=== PATIENT | male | born 1950 | race American Indian/Alaskan Native ===

== ENCOUNTER 2017-02-12 12:01 | Emergency (ER) | payer MEDICARE ==
[2017-02-12 13:03] LABS: Anion Gap 19 mmol/L; Blood Urea Nitrogen 12 mg/dL (9-20); Carbon Dioxide 27 mmol/L (22-30); Chloride 98.3 mmol/L (98-107); Glucose 108 mg/dL (75-100); Potassium 4.2 mmol/L (3.6-5.0); Sodium 140 mmol/L (137-145)
[2017-02-12 13:07] LABS: Basophils % (Auto) 1.1 % (0.0-1.8); Eosinophils % (Auto) 0.2 % (0.0-4.3); Hematocrit 45.8 % (35.5-45.6); Hemoglobin 14.9 gm/dl (11.8-15.2); Mean Corpuscular HGB Conc 33 % (32-34); Mean Corpuscular Hemoglobin 29 pg (28-32); Mean Corpuscular Volume 89 fl (84-94); Platelet Count 253 K/mm3 (140-440); Red Blood Count 5.13 M/mm3 (3.65-5.03); Red Cell Distribution Width 13.6 % (13.2-15.2)
--- NOTE | 2017-02-12 14:33 | XRay Report ---
PA and lateral chest: Shortness of breath. The lungs are hyperlucent and hyperinflated. There is blunting of the right costophrenic angle. [place] is scattered over the posterior chest and upper abdomen. The heart is normal in size. No vascular congestion. No prior study for comparison. Impression: COPD. Probable posttraumatic right pleural changes.
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
[2017-02-12 16:52] VITALS: BP 110/77
== END 2017-02-12 16:55 | disposition home or self-care (01) ==
LOC: ED 12:01
DX: R07.2 Precordial pain (principal); R11.0 Nausea; F41.9 Anxiety disorder, unspecified
CPT/HCPCS: 36415; 71020; 80048; 84484; 85025; 93005; 93010

== ENCOUNTER 2017-10-07 17:43 | Emergency (ER) | payer MEDICAID, MEDICARE ==
[2017-10-07] MEDS ORDERED: DUONEB *Not for PRN Use IH ONE (21:26)
[2017-10-07] MEDS ORDERED: GUAIFENESIN DM SYRUP PO ONE (21:26)
[2017-10-07 21:45] LABS: Basophils % (Auto) 0.3 % (0.0-1.8); Hematocrit 43.5 % (35.5-45.6); Hemoglobin 14.5 gm/dl (11.8-15.2); Lymphocytes # (Auto) 0.7 K/mm3 (1.2-5.4); Lymphocytes % (Auto) 13.9 % (13.4-35.0); Mean Corpuscular HGB Conc 33 % (32-34); Mean Corpuscular Hemoglobin 29 pg (28-32); Mean Corpuscular Volume 87 fl (84-94); Monocytes # (Auto) 0.4 K/mm3 (0.0-0.8); Monocytes % (Auto) 8.5 % (0.0-7.3); Platelet Count 248 K/mm3 (140-440); Red Blood Count 4.98 M/mm3 (3.65-5.03); Red Cell Distribution Width 13.3 % (13.2-15.2)
[2017-10-07 22:00] LABS: BUN/Creatinine Ratio 32; Blood Urea Nitrogen 16 mg/dL (9-20); Calcium 8.9 mg/dL (8.4-10.2); Hemolysis Index 10
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
[2017-10-07] MEDS ORDERED: DELTASONE ONE (23:46)
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
[2017-10-08] MEDS ORDERED: DELTASONE PO ONE (00:01)
[2017-10-08 00:03] VITALS: BP 112/63
== END 2017-10-08 00:07 | disposition home or self-care (01) ==
LOC: ED 17:43
DX: J44.1 Chronic obstructive pulmonary disease with (acute) exacerbation (principal); J06.9 Acute upper respiratory infection, unspecified
CPT/HCPCS: 36415; 71046; 80048; 83880; 85025; 93005; 93010; 99285; J2930; J7512